=== PATIENT | female | born 1990 | race Caucasian/White ===

== ENCOUNTER 2017-12-08 16:51 | Emergency (ER) | payer OTHER ==
[2017-12-08 17:00] VITALS: BP 114/70
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
[2017-12-08] MEDS ORDERED: ACETAMINOPHEN 325 MG TABLET PO ONE (17:19)
[2017-12-08] MEDS ORDERED: IBUPROFEN 800 MG TABLET PO ONE (17:19)
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
== END 2017-12-08 19:06 | disposition home or self-care (01) ==
LOC: ER 16:51
DX: S80.01XA Contusion of right knee, initial encounter (principal); V43.62XA Car passenger injured in collision with other type car in traffic accident, initial encounter
CPT/HCPCS: 99283

== ENCOUNTER 2017-12-18 11:41 | Emergency (ER) | payer OTHER ==
[2017-12-18 12:01] VITALS: BP 119/66
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
== END 2017-12-18 12:35 | disposition home or self-care (01) ==
LOC: ER 11:41
DX: S80.00XA Contusion of unspecified knee, initial encounter (principal); M25.561 Pain in right knee; V49.9XXA Car occupant (driver) (passenger) injured in unspecified traffic accident, initial encounter
CPT/HCPCS: 99283; L1830